=== PATIENT | female | born 1995 | race Caucasian/White ===

== ENCOUNTER → 2020-08-20 12:29 | Outpatient (CLI) | payer OTHER, SELFPAY ==
[2020-08-20 20:41] LABS: COVID19 - ORCAS (NP or Nasal) POSITIVE (Negative)
== END ==
PROVIDERS: Visit Provider Family Medicine
DX: U07.1 COVID-19 (principal)
CPT/HCPCS: U0003

== ENCOUNTER → 2023-08-10 11:07 | Outpatient (CLI) | payer OTHER, MEDICAID, SELFPAY ==
[2023-08-10 12:17] LABS: Natera Collection Specimen Collected
[2023-08-10 12:22] LABS: Add Manual Diff / Slide Review NO; Basophils Absolute Auto 0 /uL (0-100); Basophils Percent Auto 0.3 % (0-2); Eosinophils Absolute Auto 200 /uL (0-450); Eosinophils Percent Auto 2.9 % (2-4); Hematocrit 37.7 % (36-46); Hemoglobin 13.1 g/dL (12.0-16.0); Lymphocytes Absolute Auto 1900 /uL (1100-4500); Mean Corpuscular HGB Conc 34.8 % (30-36); Mean Corpuscular Hemoglobin 30.8 PG (26-34); Mean Corpuscular Volume 88.6 fL (80-100); Monocytes Absolute Auto 700 /uL (0-900); Monocytes Percent Auto 9.3 % (3-14); Neutrophils Absolute Auto 4700 /uL (1500-7000); Neutrophils Percent Auto 62.5 % (50-75); Platelet Count 299 X10^3/uL (150-400); Red Blood Cell Count 4.25 X10^6/uL (4.0-5.2); Red Cell Distribution Width 12.6 % (11.6-14.8); White Blood Cell Count 7.4 X10^3/uL (4.5-11.0)
[2023-08-10 15:02] LABS: Hepatitis B Surface Antigen NEGATIVE s/c (NEGATIVE); Rubella Antibody IgG 96.2 IU/mL (>15)
[2023-08-10 15:20] LABS: HIV 1 & 2 Ab/Ag 4th Gen Combo NEGATIVE (NEGATIVE); Hep C Virus Ab w/Reflex Quant NEGATIVE s/c (NEGATIVE)
[2023-08-11 08:09] LABS: RPR Screen Non Reactive (Non Reactive); Varicella IgG Antibody 349 index (Immune >165)
== END ==
PROVIDERS: PCP Physician Assistant; Referring Provider Student in an Organized Health Care Education/Training Program; Visit Provider Student in an Organized Health Care Education/Training Program
DX: Z34.02 Encounter for supervision of normal first pregnancy, second trimester (principal); Z3A.12 12 weeks gestation of pregnancy
CPT/HCPCS: 36415; 80055; 86787; 86803; 86850; 86900; 86901; 87086; 87389

== ENCOUNTER → 2023-09-07 11:01 | Outpatient (CLI) | payer OTHER, MEDICAID, SELFPAY ==
[2023-09-11 07:22] LABS: AFP Value 28.3 ng/mL (.); Gest Age on Col Date 16.6 weeks (.); Insulin Dep Diabetes No (.); OSBR Risk 1IN 10000 (.); Results Report (.); Test Results *Screen Negative* (.)
== END ==
LOC: LAB 11:01
PROVIDERS: PCP Physician Assistant; Referring Provider Student in an Organized Health Care Education/Training Program; Visit Provider Student in an Organized Health Care Education/Training Program
DX: Z34.00 Encounter for supervision of normal first pregnancy, unspecified trimester (principal); Z3A.16 16 weeks gestation of pregnancy
CPT/HCPCS: 36415; 82105

== ENCOUNTER → 2023-10-15 12:12 | Outpatient (CLI) | payer OTHER, MEDICAID, SELFPAY ==
--- NOTE | 2023-10-15 12:13 | DI.US.S_ITS ---
PROCEDURE: US OB >= 14 WEEKS FETUS INDICATIONS: anatomy scan OUTSIDE/PRIOR DATING DATA: Last menstrual period (LMP): 05/14/2023. LMP-based estimated date of delivery (MURALI): 02/18/2024. First dating scan (date and location): 08/10/2023. Estimated date of delivery (MURALI) from first dating scan: 02/20/2024. The calculations are made using the working MURALI of 02/18/2024. TECHNIQUE: Real-time scanning was performed of the fetus, with image documentation and biometric measurements. Endovaginal scanning: Not performed COMPARISON: None. FINDINGS: General: A single living intrauterine gestation is present. Presentation: Breech. Placenta: Placental position is anterior, without previa. Amniotic fluid index: Anterior 12.9 cm, normal range is 5-24 cm. Single deepest vertical pocket is 5.0 cm. heart rate: 133 beats per minute. Maternal cervical canal: 4.1 cm long. Normal lower limit is 2.5 cm. biometrics: Biparietal diameter: 5.4 cm, 22 weeks 3 days Head circumference: 19.2 cm, 21 weeks 3 days Abdominal circumference: 17.5 cm, 22 weeks 3 days Femur length: 3.4 cm, 20 weeks 5 days Clinically estimated gestational age: 22 weeks 0 days Composite gestational age from present scan: 21 weeks 5 days Estimated weight and percentile: 440 g, 27th percentile Anatomic survey: Neuro: Ventricles are non-dilated at less than 10 mm. Cisterna magna is normal at 3-11 mm. Cerebellum is normal in size and morphology. Nuchal skin fold: Normal at less than 6 mm between 14-21 weeks gestational age. Face: Nose and lips, facial profile are normal. Spine: No evidence for spina bifida. Heart: 4-chambered heart is present, with normal ventricular outflow tracts. Diaphragm: Diaphragm is intact. Stomach: Left-sided stomach is present. Kidneys: No hydronephrosis. Normal is less than 5 mm in 2nd trimester, less than 7 mm in 3rd trimester. Cord: 3-vessel cord has orthotopic insertion. Bladder: Normal in size. Extremities: All 4 extremities identified. IMPRESSION: 1. Living 2nd trimester intrauterine with no sonographic evidence of complications. Ultrasound age correlates with clinical age. 2. Normal 2nd trimester anatomy study. We strive to produce accurate, complete, and clear reports of imaging services. To assist us in improving patient care, this report was composed using standard report templates and voice recognition software. Therefore, it may contain abnormal punctuation, insertions and/or omissions. Occasional wrong-word or sound-alike substitutions may occur. Though we review the report and make efforts to correct it, we do recommend that the report be read carefully in proper context to recognize any text inaccuracies. Dictated by: Bakari Dunham M.D. on 10/15/2023 at 15:56 Approved by: Bakari Dunham M.D. on 10/15/2023 at 16:51
== END ==
PROVIDERS: PCP Physician Assistant; Referring Provider Student in an Organized Health Care Education/Training Program; Visit Provider Student in an Organized Health Care Education/Training Program
DX: Z34.02 Encounter for supervision of normal first pregnancy, second trimester (principal); Z3A.21 21 weeks gestation of pregnancy
CPT/HCPCS: 76811

== ENCOUNTER → 2023-11-09 09:16 | Outpatient (CLI) | payer OTHER, MEDICAID, SELFPAY ==
[2023-11-09 11:42] LABS: Hematocrit 35.3 % (36-46); Hemoglobin 12.1 g/dL (12.0-16.0)
[2023-11-09 12:27] LABS: GTT (PREG) 1 Hour PP 50gm Dose 154 mg/dL (76-139)
== END ==
PROVIDERS: PCP Physician Assistant; Referring Provider Student in an Organized Health Care Education/Training Program; Visit Provider Student in an Organized Health Care Education/Training Program
DX: Z34.82 Encounter for supervision of other normal pregnancy, second trimester (principal); Z3A.26 26 weeks gestation of pregnancy
CPT/HCPCS: 36415; 82950; 85014; 85018

== ENCOUNTER → 2023-11-16 09:29 | Outpatient (CLI) | payer OTHER, MEDICAID, SELFPAY ==
[2023-11-16 10:06] LABS: Glucose Fasting Gestational 79 mg/dL (76-95)
[2023-11-16 12:25] LABS: Glucose 1 Hour Gest 136 mg/dL (76-180)
[2023-11-16 12:34] LABS: Glucose 2 Hour Gest 157 mg/dL (76-155)
[2023-11-16 13:46] LABS: Glucose Tol Interp,Gestational INTERPRETATION
[2023-11-16 13:52] LABS: Glucose 3 Hour Gest 147 mg/dL (76-140)
== END ==
PROVIDERS: PCP Physician Assistant; Referring Provider Student in an Organized Health Care Education/Training Program; Visit Provider Student in an Organized Health Care Education/Training Program
DX: Z34.00 Encounter for supervision of normal first pregnancy, unspecified trimester (principal); R73.09 Other abnormal glucose
CPT/HCPCS: 36415; 82951; 82952

== ENCOUNTER → 2023-11-22 15:55 | Outpatient (CLI) | payer OTHER, MEDICAID, SELFPAY ==
--- NOTE | 2023-11-22 17:06 | DIAB.GDA ---
Initial Gestational Diabetes Assessment Name: Jennifer Wise Date: 11/22/23 Time: 3-355p Dx: Gestational Diabetes Provider: Alex MURALI: 02/18/24 Weeks: 27-28 Erin presents for initial visit virtually using [facility] Portal. SMBG monitor ordered. Pharmacy has not received meter yet. [place]. Today her main question is how severe is my GDM dx?. States she has a lot of anxiety about diagnosis. FH of DM: maternal, grandmother and great aunt type 2, same grandmother had GDM. Reports she was having more frequent urination and thirsty after sweets prior to diagnosis. 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 Has veggies, hummus, and fruit available at work. Diet Recall: Wake: 7a 7-730a: Bagel and cream cheese before. Now 1 ww toast and egg 1c black coffee (before sugar coffee with milk) 10a: veggie and hummus 1130a-12p: was having sandwiches with veggies and warmed deli meat and cheese with popcorn or sun chips OR salads Sn: veggies 6p: was pizza or burgers and fries. Now: rice x ?-1c, veggies, protein Sn: none now, before sweets or popcorn Water: 12oz x 8 Coffee: 1c Occasional bubbly water Craving sweets. No soda or juice. Anthropometrics: Ht: 5'10 Wt: 202# 11/09/23 at OB visit Prepregnancy wt: 165# Physical Activity: Movement with work, takes stairs intentionally at work. No other intentional activity. Self-Monitoring Blood Glucose: None yet. Waiting on meter from pharmacy. Diabetes Medications: None Pertinent Labs: Screen: 154 H; OGTT: 79, 136, 157 H, 147 H Nutrition Rx: Meal: 45-60g lunch and dinner; 30g breakfast Snack: 15-30g Nutrition Diagnosis: Altered nutrition related lab value r/t GDM dx aeb recent OGTT Nutrition and food related knowledge deficit r/t new dx GDm aeb OGTT, diet recall, and pt report Self monitoring deficit r/t does not currently have meter aeb pt report Intervention: This participant was very receptive. Provided appropriate educational handouts. Discussed the following topics: GDM pathophysiology and impact of hyperglycemia on mom and baby Risk for T2DM for mom and baby in the future Ways to reduce risk T2DM Plate Method, meal timing, carb counting, pairing macronutrients and spreading out CHO for better BG management Blood glucose goals (FBG: <95 and 1 hour <140 mg/dL or 2 hour <120 mg/dl); importance of checking 4x per day (FBG and pc) Impact of macronutrients on blood glucose Recommended servings for carbohydrates at meals and snacks Brainstormed appropriate meal plan based on her food preferences Role of physical activity and following provider guidelines for safety Reviewed her lab results in detail, discussed how this dx is manageable. Goals: Aim for nutrition rx Check BG 4x per day once meter is received Add fruit to a snack during the day Pair CHO and pro at meals and snacks Follow-up: KRYSTA CARREON follow-up in one week Julianna Su RDN, LAURI Certified Diabetes Care and Secondary School Teacher Librarian T: [phone] F: [phone] [email or web address] Thank you for this referral
== END ==
LOC: DIET 15:55
PROVIDERS: PCP Physician Assistant; Referring Provider Student in an Organized Health Care Education/Training Program
DX: O24.419 Gestational diabetes mellitus in pregnancy, unspecified control (principal); Z3A.27 27 weeks gestation of pregnancy; Z71.3 Dietary counseling and surveillance
CPT/HCPCS: 97802

== ENCOUNTER → 2023-11-30 08:09 | Outpatient (CLI) | payer OTHER, MEDICAID, SELFPAY ==
--- NOTE | 2023-11-30 08:54 | DIAB.GDFU ---
Follow-up Gestational Diabetes Assessment Name: Jennifer Wise Date: 11/30/23 Time: 805-830a Dx: Gestational Diabetes Provider: Alex MURALI: 02/18/24 Weeks: 28-29 Erin presents for follow-up visit virtually using [facility] Portal. Anxiety: feeling much better since seeing BG numbers. Was able to acquire and start BG checks this week. Added fruit to afternoon snack. Pairing carbs with protein most meals/snacks. Missing protein at afternoon snack at times. Sometimes very tired staying up after dinner to check pc reading. Can check at 1 hour and beatriz in BG log. c/o leg cramps at night. Diet recall: 7730a: Croissant sandwich; 2 ww toast and avocado 1c black coffee (half and half) 10a: veggie and hummus 1130a-12p: sandwiches with veggies, some chips Sn: half baked good OR fruit OR veggies and hummus 630p: veggies, 1/2c rice, chx artis OR burger with bun and salad Sn: none Water: 68oz Coffee: 1c Occasional bubbly water Anthropometrics: Ht: 5'10 Wt: 202# 11/09/23 at OB visit Prepregnancy wt: 165# Physical Activity: Movement with work, takes stairs intentionally at work. Has some hikes scheduled this weekend. Self-Monitoring Blood Glucose: FBG and 2 hour. All FBG this week in goal. Most pc readings in goal. One elevation from very high CHO intake. Date Pre Post Pre Post Pre Post notes 11/25 104 126 4 pc pizza and ice cream 11/26 78 101 92 82 1/2c Rice, veg, chx and artis 11/27 72 93 94 114 Burger/fries 11/28 85 83 112 88 Burger with bun and salad B: ham and namibian croissant 11/29 89 Diabetes Medications: None Pertinent Labs: Screen: 154 H; OGTT: 79, 136, 157 H, 147 H Nutrition Rx: Meal: 45-60g lunch and dinner; 30g breakfast Snack: 15-30g Nutrition Diagnosis: Altered nutrition related lab value r/t GDM dx aeb recent OGTT Nutrition and food related knowledge deficit r/t new dx GDm aeb OGTT, diet recall, and pt report- improved Self monitoring deficit r/t does not currently have meter aeb pt report - improved Inconsistent protein intake r/t needing pairing in afternoon aeb diet recall- new Intervention: This participant was very receptive. Provided appropriate educational handouts. Discussed the following topics: Balancing CHO intake for and BG management Physical activity plans Hydration during Blood glucose goals (FBG: <95 and 1 hour <140 mg/dL or 2 hour <120 mg/dl);Potential for 1 hour checks in evening if difficulty to get 2 hour. Recommended servings for carbohydrates at meals and snacks Pairing with protein and protein needs during Reviewed her lab results in detail, discussed how this dx is manageable. Goals: Aim for nutrition rx- met Check BG 4x per day once meter is received - met Add fruit to a snack during the day - met Pair CHO and pro at meals and snacks - improved Add protein to afternoon snack- new Can check 1 hour pc after dinner if tired- new Follow-up: KRYSTA CARREON follow-up in two weeks Julianna Su RDN, LAURI Certified Diabetes Care and [employer] Machine Operator T: [phone] F: [phone] [email or web address] Thank you for this referral
== END ==
PROVIDERS: PCP Physician Assistant; Referring Provider Student in an Organized Health Care Education/Training Program
DX: O24.419 Gestational diabetes mellitus in pregnancy, unspecified control (principal); Z3A.28 28 weeks gestation of pregnancy; Z71.3 Dietary counseling and surveillance
CPT/HCPCS: 97803

== ENCOUNTER → 2023-12-13 15:57 | Outpatient (CLI) | payer OTHER, MEDICAID, SELFPAY ==
--- NOTE | 2023-12-13 16:00 | DIAB.GDFU ---
Follow-up Gestational Diabetes Assessment Name: Jennifer Wise Date: 12/13/23 Time: 4-430p Dx: Gestational Diabetes Provider: Alex MURALI: 02/18/24 Weeks: 30-31 Erin presents for follow-up visit virtually using [facility] Portal. Had a half of subway sandwich, BG ok. Then had a whole one and BG and BG was 140s. c/o leg cramps at night last visit, and now has noticed low water intake increases likelihood of cramps. Super busy at work may have reduced water intake. Trying to bring large water bottle to help increase intake. sometime will catch up on all water intake at night, leading to increased urination in the night. Reports whooping cough vaccine upset GI, ie nausea, 1x emesis, some minor skin rashes for one day. Much better now. Diet recall: a: 2x pb toast and banana 1c black coffee (half and half) 10a: veggie and hummus + fruit 1130a-1p: sandwiches with veggies, some chips Sn: veggies and hummus + fruit 630p: burger with bun and half fries OR Ramen noodles, carrots, hummus OR quesadilla with carrots and hummus Sn: none Water: 32-96oz Coffee: 1c Occasional bubbly water Anthropometrics: Ht: 5'10 Wt: 206# 12/07/23 202# 11/09/23 at OB visit Prepregnancy wt: 165# Physical Activity: Trying to walk more. More hikes are scheduled. Knee pain is limiting. Self-Monitoring Blood Glucose: FBG and 2 hour. All FBG this week in goal but one elevation on 12/06. Most pc readings in goal except when very high CHO intake x2 meals this week. Date Pre Post Pre Post Pre Post notes 12/06 100 104 123 109 1 hr 12/07 80 102 98 129 1 hr 12/08 85 130 1h 106 110 12/09 91 96 111 148 12 sandwich 12/10 83 96 96 120 12/11 84 104 81 99 12/12 81 108 97 Diabetes Medications: None Pertinent Labs: Screen: 154 H; OGTT: 79, 136, 157 H, 147 H Nutrition Rx: Meal: 45-60g lunch and dinner; 30g breakfast Snack: 15-30g Nutrition Diagnosis: Altered nutrition related lab value r/t GDM dx aeb recent OGTT Inconsistent protein intake r/t needing pairing in afternoon aeb diet recall- improved/in progress Inconsistent protein intake r/t needing protein at dinner aeb diet recall- in progress Predicted inadequate fluid intake r/t busy work day aeb pt report of 32oz some day and cramps- new Intervention: This participant was very receptive. Provided appropriate educational handouts. Discussed the following topics: Protein and hydration needs and benefits with nutrition and BG management Carb portions and BG results BG trends and goals Strategies for water intake Reviewed her lab results in detail, discussed how this dx is manageable. Goals: Add protein to afternoon snack- improved Can check 1 hour pc after dinner if tired- met Try drinking more water before work to reduce catch up at night- new Add protein to ramen- new Follow-up: KRYSTA CARREON follow-up in two weeks Julianna Su RDN, LAURI Certified Diabetes Care and Open End Spinning Operator T: [phone] F: [phone] [email or web address] Thank you for this referral
== END ==
LOC: DIET 15:58
PROVIDERS: PCP Physician Assistant; Referring Provider Student in an Organized Health Care Education/Training Program
DX: O24.419 Gestational diabetes mellitus in pregnancy, unspecified control (principal); Z3A.30 30 weeks gestation of pregnancy; Z71.3 Dietary counseling and surveillance
CPT/HCPCS: 97803

== ENCOUNTER → 2023-12-27 16:06 | Outpatient (CLI) | payer OTHER, MEDICAID, SELFPAY ==
--- NOTE | 2023-12-27 16:08 | DIAB.GDFU ---
Follow-up Gestational Diabetes Assessment Name: Jennifer Wise Date: 12/27/23 Time: 4-435p Dx: Gestational Diabetes Provider: Alex MURALI: 02/18/24 Weeks: 32-33 Erin presents for follow-up visit virtually using [facility] Portal. Has had more elevations FBG and pc readings lately. States she cannot remember what she has been eating lately, but does endorse higher CHO intake when postprandial elevations occur. States she has been trying to drink more water throughout the day, as suggested last visit. After discussing the potential for insulin due to elevated FBG, she reports feeling 0/10 anxiety about the potential for insulin. Feels if this is the best treatment, she is amenable to this. Has OB visit tomorrow. Anthropometrics: Ht: 5'10 Wt: 206# 12/07/23 202# 11/09/23 at OB visit Prepregnancy wt: 165# Self-Monitoring Blood Glucose: FBG and 2 hour. FBG seem to be going up this week with 3 above goal. Also, documented three elevated pc readings. Did not check BG mid week due to baby shower and losing meter temporarily. Last night, had burger and fries and BG went up to 158mg/dl. FBG 12/14-12/19: 76, 73, 95, 92, 95, 88 Date Pre Post Pre Post Pre Post notes 12/20 77 112 1h 70 138 12/21 94 12/22 12/23 98 110 131 112 12/24 98 120 91 140 1h 12/25 93 115 1h 105 158 1h 12/26 99 95 94 Diabetes Medications: None Pertinent Labs: Screen: 154 H; OGTT: 79, 136, 157 H, 147 H Intervention: This participant was very receptive. Provided appropriate educational handouts. Discussed the following topics: Potential for insulin injection HS Action of insulin and safety during Strategy for injection, will send handout if insulin is rx'd tomorrow Overall nutrition recs and lowering CHO intake at meals Addressed any questions regarding GDM and/or insulin Goals: Try drinking more water before work to reduce catch up at night- met Add protein to ramen- d/c (cut out ramen) Try to lower CHO intake to recs at meals- new Discuss potential for insulin with OB tomorrow- new Follow-up: KRYSTA CARREON follow-up in two weeks or sooner niranjan Su RDN, [facility] Certified Diabetes Care and Pigs Feet Finisher T: [phone] F: [phone] [email or web address] Thank you for this referral
== END ==
PROVIDERS: PCP Physician Assistant; Referring Provider Student in an Organized Health Care Education/Training Program
DX: O24.419 Gestational diabetes mellitus in pregnancy, unspecified control (principal); Z3A.32 32 weeks gestation of pregnancy; Z71.3 Dietary counseling and surveillance
CPT/HCPCS: G0108

== ENCOUNTER → 2024-01-25 10:08 | Outpatient (CLI) | payer OTHER, MEDICAID, SELFPAY ==
[2024-01-26 12:37] LABS: Strep Grp B PCR NEG for Grp B Strep
== END ==
PROVIDERS: PCP Physician Assistant; Referring Provider Student in an Organized Health Care Education/Training Program; Visit Provider Student in an Organized Health Care Education/Training Program
DX: Z36.85 Encounter for antenatal screening for Streptococcus B (principal)
CPT/HCPCS: 87653

== ENCOUNTER 2024-01-25 11:26 | Outpatient (CLI) | payer OTHER, MEDICAID, SELFPAY ==
--- NOTE | 2024-01-25 12:16 | P.TNLD_ITS ---
Visit Information Visit Information Date of evaluation: 01/25/24 Primary OB Provider: Maura Johnson On-call OB Provider: Kristal Becker Reason for Evaluation: Yes non-stress test non-stress test reason: diabetes PFSH Medical History (Updated 01/25/24 @ 12:19 by Kristal Becker MD) Penicillin allergy Acne Allergies Anxiety Chronic back pain (~2015) Ankle pain (~2013) Migraine with aura (~2015) HSV (herpes simplex virus) anogenital infection (~2014) Hives Contact with and (suspected) exposure to infections with a predominantly sexual mode of transmission Bronchospasm with bronchitis, acute Surgical History (Updated 07/05/23 @ 12:13 by Monse Cedillo RN) [place] teeth extracted Family History (Updated 08/27/23 @ 19:13 by Garima Obando) Mother Fibromyalgia Thyroid disease Aunt Ovarian cancer Diabetes mellitus Grandmother Diabetes mellitus Osteoporosis Cervical cancer Grandfather Kidney failure Diabetes mellitus Heart disease Hypertension Grandmother Diabetes mellitus Heart disease Sister Hypertension Obsessive compulsive disorder Depression Social History marital status: unmarried,living together number of children: 0 household members: significant other lives independently: Yes caregiver/support person: No housing: house pets and animals: Yes (2 dogs) education level: high school 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) current occupational exposures/hazards: Yes special becca needs: No travel history: recent (domestic only) seatbelt use: always helmet use: Yes water heater temp set < 120 deg: No (will check and consider adjusting) working smoke detector in home: Yes fire extinguisher in home: Yes carbon monox detector in home: Yes firearms in home: Yes firearms unloaded and locked: Yes do you feel safe at home: Yes Smoking Status: Former smoker (quit vaping 2022, quit all nicotine early 2023) Tobacco: How many years used: 8 second hand exposure: No alcohol intake: never substance use type: marijuana during the past year weight has: other (fluxuated) well-balanced diet: daily or most days daily servings fruits/ve or more times/day caffeine: Yes (normally, but not since becoming ) Type(s) of exercise: running frequency: 3-4 times per week Evaluation Evaluation Baseline heart rate: 125 Variability: Moderate (11-25) monitor accelerations: Present Monitor Decelerations: Absent Contraction Frequency (minutes): 0 Category of Tracing: Reactive Status: Category l Diagnosis, Plan/Disposition Final Diagnosis (1) Gestational diabetes mellitus, class A2: Status: Acute (2) 36 weeks gestation of : Status: Acute Plan/Disposition Plan: Reactive nonstress test. Continue with routine OB visits. OB Disposition: home
== END 2024-01-25 12:15 | disposition home or self-care (01) ==
LOC: OB 01-28 10:34
PROVIDERS: PCP Physician Assistant; Referring Provider Student in an Organized Health Care Education/Training Program; Visit Provider Student in an Organized Health Care Education/Training Program
DX: O24.414 Gestational diabetes mellitus in pregnancy, insulin controlled (principal); Z3A.36 36 weeks gestation of pregnancy
CPT/HCPCS: 59025; 87653; G0378; G0379

== ENCOUNTER 2024-02-13 14:10 | Outpatient (CLI) | payer OTHER, MEDICAID, SELFPAY | END 2024-02-13 15:26 | disposition home or self-care (01) | LOC: LABOR 14:26 → OB 02-14 10:50 | PROVIDERS: PCP Physician Assistant; Referring Provider Student in an Organized Health Care Education/Training Program; Visit Provider Student in an Organized Health Care Education/Training Program | DX: Z03.71 Encounter for suspected problem with amniotic cavity and membrane ruled out (principal) | CPT/HCPCS: 59025; 84112; G0378; G0379 ==

== ENCOUNTER 2024-02-14 02:30 | Outpatient (CLI) | payer OTHER, MEDICAID, SELFPAY | END 2024-02-14 03:43 | disposition home or self-care (01) | LOC: OB 02-18 08:09 | PROVIDERS: PCP Physician Assistant; Referring Provider Obstetrics & Gynecology; Visit Provider Obstetrics & Gynecology | DX: O47.1 False labor at or after 37 completed weeks of gestation (principal); O24.419 Gestational diabetes mellitus in pregnancy, unspecified control; Z3A.39 39 weeks gestation of pregnancy | CPT/HCPCS: 59025; G0378; G0379 ==

== ENCOUNTER 2024-02-14 07:03 | Outpatient (CLI) | payer OTHER, MEDICAID, SELFPAY | END 2024-02-14 09:00 | disposition home or self-care (01) | LOC: OB 02-18 06:11 | PROVIDERS: PCP Physician Assistant; Referring Provider Obstetrics & Gynecology; Visit Provider Obstetrics & Gynecology | DX: O24.419 Gestational diabetes mellitus in pregnancy, unspecified control (principal); Z3A.39 39 weeks gestation of pregnancy | CPT/HCPCS: 59025; G0378; G0379 ==

== ENCOUNTER 2024-02-15 23:58 | Inpatient (IN) | payer OTHER, MEDICAID, SELFPAY ==
[2024-02-16 01:11] LABS: Add Manual Diff / Slide Review NO; Basophils Absolute Auto 0 /uL (0-100); Basophils Percent Auto 0.2 % (0-2); Eosinophils Absolute Auto 200 /uL (0-450); Eosinophils Percent Auto 1.6 % (2-4); Hematocrit 38.9 % (36-46); Hemoglobin 13.2 g/dL (12.0-16.0); Lymphocytes Absolute Auto 2400 /uL (1100-4500); Lymphocytes Percent Auto 21.7 % (25-40); Mean Corpuscular Volume 91.1 fL (80-100); Monocytes Absolute Auto 1200 /uL (0-900); Monocytes Percent Auto 10.4 % (3-14); Neutrophils Absolute Auto 7300 /uL (1500-7000); Neutrophils Percent Auto 66.1 % (50-75); Platelet Count 263 X10^3/uL (150-400); Red Blood Cell Count 4.27 X10^6/uL (4.0-5.2); Red Cell Distribution Width 13.6 % (11.6-14.8); White Blood Cell Count 11.1 X10^3/uL (4.5-11.0)
[2024-02-16 01:13] VITALS: BP 137/92
[2024-02-16 01:27] LABS: Alanine Aminotransferase 21 IU/L (<35); Albumin 3.7 g/dL (3.5-5.0); Albumin Globulin Ratio 1.1 (1.0-2.8); Alkaline Phosphatase 118 U/L (38-126); Aspartate Aminotransferase 41 IU/L (14-36); Bilirubin Total 0.7 mg/dL (0.2-1.3); Blood Urea Nitrogen 12 mg/dL (7-17); Calcium 9.4 mg/dL (8.4-10.2); Carbon Dioxide 20 mmol/L (22-32); Chloride 107 mmol/L (98-107); Estimated Glomerular Filt Rate > 60 mL/min (>60); Globulin 3.3 g/dL (1.7-4.1); Glucose 98 mg/dL (70-100); Potassium 4.6 mmol/L (3.4-5.1); Sodium 133 mmol/L (137-145)
[2024-02-16 01:28] LABS: Creatinine Urine Random 43.81 mg/dL; Protein (Total) Urine Random 23 mg/dL (0-12); Protein Creatinine Ratio Urine 0.52 GRAM/24H
[2024-02-16 01:33] LABS: HEMOLYSIS 110 (0-50)
--- NOTE | 2024-02-16 10:35 | P.HP_ITS ---
History of Present Illness History of Present Illness Date Patient Seen: 02/16/24 Time Patient Seen: 08:45 Chief complaint: labor Narrative: 28 yo G1 presenting at [facility] Medical History (Updated 02/08/24 @ 11:28 by Maura Johnson DO) Penicillin allergy Acne Allergies Anxiety Chronic back pain (~2015) Ankle pain (~2013) Migraine with aura (~2015) HSV (herpes simplex virus) anogenital infection (~2014) Hives Contact with and (suspected) exposure to infections with a predominantly sexual mode of transmission Bronchospasm with bronchitis, acute Surgical History (Updated 07/05/23 @ 12:13 by Monse Cedillo, BART) [place] teeth extracted Family History (Updated 08/27/23 @ 19:13 by Garima Obando) Mother Fibromyalgia Thyroid disease Aunt Ovarian cancer Diabetes mellitus Grandmother Diabetes mellitus Osteoporosis Cervical cancer Grandfather Kidney failure Diabetes mellitus Heart disease Hypertension Grandmother Diabetes mellitus Heart disease Sister Hypertension Obsessive compulsive disorder Depression Social History marital status: unmarried,living together number of children: 0 household members: significant other lives independently: Yes caregiver/support person: No housing: house pets and animals: Yes (2 dogs) education level: high school 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) current occupational exposures/hazards: Yes special becca needs: No travel history: recent (domestic only) seatbelt use: always helmet use: Yes water heater temp set < 120 deg: No (will check and consider adjusting) working smoke detector in home: Yes fire extinguisher in home: Yes carbon monox detector in home: Yes firearms in home: Yes firearms unloaded and locked: Yes do you feel safe at home: Yes Smoking Status: Former smoker Tobacco: How many years used: 8 second hand exposure: No alcohol intake: never substance use type: marijuana during the past year weight has: other (fluxuated) well-balanced diet: daily or most days daily servings fruits/ve or more times/day caffeine: Yes (normally, but not since becoming ) Type(s) of exercise: running frequency: 3-4 times per week Meds Home Medications and Allergies Home Medications Medication Instructions Recorded Confirmed Type magnesium oxide 400 mg (241.3 mg 400 mg PO DAILY 07/05/23 02/01/24 History magnesium) tablet vitamin-ferrous sulfate tab PO 07/05/23 02/01/24 History 27 mg iron-folic acid 0.8 mg tablet blood sugar diagnostic (Blood #120 ea 11/19/23 02/01/24 Rx Glucose Test strips) blood-glucose meter (Blood Glucose #1 ea 11/19/23 02/01/24 Rx Monitoring kit) lancets #120 ea 11/19/23 02/01/24 Rx Double Electric Breast Pump #1 ea 11/26/23 02/01/24 Rx breast pump #1 ea 12/07/23 02/01/24 Rx RSVPreF3 antigen-AS01E 0.5 ml IM ONCE #1 ea 12/28/23 02/01/24 Rx adjuvant(PF) 120 mcg/0.5 mL IM suspension, kit insulin NPH isoph U-100 human 100 20 unit (0.2 mL) SUBCUT .qhs #15 mL 12/28/23 02/01/24 Rx unit/mL (3 mL) subcutaneous pen (Humulin N NPH U-100 Insulin KwikPen) valacyclovir 500 mg tablet 500 mg PO BID #60 tabs 01/25/24 02/01/24 Rx (Valtrex) Allergies Allergy/AdvReac Type Severity Reaction Status Date / Time amoxicillin Allergy Severe Swelling Verified 02/15/24 14:17 of Lip/Tongue/Throat Penicillins Allergy Severe Anaphylaxis Verified 02/15/24 14:17 shellfish derived Allergy Intermediate Hives Verified 02/15/24 14:17 adhesive tape Allergy Mild irritation Verified 02/15/24 14:17 Egg Derived AdvReac Mild Abdominal Verified 02/15/24 14:17 Pain Objective Labs 02/16/24 00:55 02/16/24 00:55 Labs: Laboratory Results - last 24 hr 02/16/24 00:55 WBC 11.1 H RBC 4.27 Hgb 13.2 Hct 38.9 MCV 91.1 MCH 31.0 MCHC 34.0 RDW 13.6 Plt Count 263 Neut % (Auto) 66.1 Lymph % (Auto) 21.7 L [place] % (Auto) 10.4 Eos % (Auto) 1.6 L Baso % (Auto) 0.2 Neut # (Auto) 7300 H Lymph # (Auto) 2400 [place] # (Auto) 1200 H Eos # (Auto) 200 Baso # (Auto) 0 Sodium 133 L Potassium 4.6 Chloride 107 Carbon Dioxide 20 L BUN 12 Creatinine 0.48 L Estimated GFR > 60 BUN/Creatinine Ratio 25.0 H Glucose 98 Calcium 9.4 Total Bilirubin 0.7 AST 41 H ALT 21 Alkaline Phosphatase 118 Total Protein 7.0 Albumin 3.7 Globulin 3.3 Albumin/Globulin Ratio 1.1 U Random Total Protein 23 H Urine Creatinine 43.81 Protein/Creatinin Ratio 0.52 Blood Type AB Positive Antibody Screen Negative Assessment & Plan Time-Based Coding :: [TOTAL MINUTES] spent with patient and on the chart (including review of chart, obtaining history, exam, reviewing outside data, placing orders, documenting exam and treatment plan, and counseling patient) on [DATE].
--- NOTE | 2024-02-16 10:36 | P.PCNOB_ITS ---
Events: Gestational Diabetes (GDMA1) Labor & Delivery Delivery date: 02/16/24 Cervical ripening method: none Induction method: none Route of delivery: L&D Laceration Description: Vaginal - 1st Degree (right labial) Delivery repair: vicryl Estimated blood loss (mL): 200 Anesthesia Type: Spinal and Epidural Narrative: PROCEDURE: 28 yo G1 presenting at 39w5d presentign with spontaneous onset of labor. She was admitted to Labor and Delivery. The patient progressed through t he 1st stage. SROM occured at 04:50 with clear fluid. Epidural was placed but did not improve pain. SPinal was attempted but was unsuccessful as well. The patient progressed through the 2nd stage and delivered a viable infant with APGARs 9/9 at 09:58 via out of [place]. Terminal mec was present. The cord was cut and clamped after it stopped pulsating, just over 3min. The placenta delivered with gentle cord traction, and appeared complete. The perineum and vagina were inspected with one shallow right labial laceration which was repaired in the usual fashion. Needle and sponge counts were correct.? The vagina was inspected and no items were left in situ. Jennifer was doing well with her at bedside. PREPROCEDURE DIAGNOSIS: Intrauterine at 39w5d GDMA1 GBS neg RH positive POSTPROCEDURE DIAGNOSIS: Intrauterine at 39w5d, delivered Same as preprocedure Plan for aftercare: Routine care
[2024-02-16] MEDS: IBUPROFEN 600 MG TABLET PO ×2 (11:55→17:26)
[2024-02-16] MEDS: ACETAMINOPHEN 325 MG TABLET 650 MG PO ×2 (11:56→17:27)
--- NOTE | 2024-02-16 13:05 | PM.AN.REGBLK ---
[facility] Pre-procedure PMH/ROS narrative: 28yr old requesting YAHAIRA for labor. GDM with controlled by diet. Showing signs of early pre-E Exam narrative: Negative ASA Class: II Labs: Hct 38.9 % (36-46) 02/16/24 00:55 Plt Count 263 X10^3/uL (150-400) 02/16/24 00:55 Medications: Current Medications Generic Name Dose Route Start Last Admin Trade Name Freq PRN Reason Stop Dose Admin Acetaminophen 650 mg 02/16/24 10:41 02/16/24 11:56 Acetaminophen 325 Mg Tablet PO 650 mg Q6HR PRN Administration Pain, Mild (1-3) Benzocaine 1 spray 02/16/24 10:41 Dermoplast [place] 20% 60 Ml TOP Q1HR PRN perineal pain Calcium Carbonate 1,000 mg 02/16/24 00:40 Calcium Carbonate 500 Mg Tab PO Q2HR PRN Dyspepsia Carboprost Tromethamine 250 mcg 02/16/24 00:40 Carboprost 250 Mcg/Ml Ampul IM Q90M PRN Bleeding Carboprost Tromethamine 250 mcg 02/16/24 10:41 Carboprost 250 Mcg/Ml Ampul IM Q90MIN PRN Bleeding Emollient Ointment 1 applic 02/16/24 10:41 Lanolin Oint 7 Gm TOP PRN PRN Tenderness Fentanyl 100 mcg 02/16/24 00:40 Fentanyl 100 Mcg/2 Ml Inj IV Q1H PRN Pain, Severe (7-10) Oxytocin/Lactated Ringer's 30 unit in 500 mls @ 200 mls/hr 02/16/24 00:40 Oxytocin Premix IV CONT PRN Bleeding Protocol Tranexamic Acid 1,000 mg/ 100 mls @ 600 mls/hr 02/16/24 00:40 Sodium Chloride IV NOW PRN Bleeding Oxytocin/Lactated Ringer's 30 unit in 500 mls @ 200 mls/hr 02/16/24 10:41 Oxytocin Premix IV CONT PRN Bleeding Protocol Tranexamic Acid 1,000 mg/ 100 mls @ 200 mls/hr 02/16/24 10:41 Sodium Chloride IV NOW PRN Bleeding Ibuprofen 600 mg 02/16/24 10:41 02/16/24 11:55 Ibuprofen 600 Mg Tablet PO 600 mg Q6HR PRN Administration Pain, Mild (1-3) Lidocaine HCl 20 ml 02/16/24 00:40 Lidocaine 1% 20 Ml INJ INTRA-OP PRN Post Delivery Methylergonovine Maleate 0.2 mg 02/16/24 00:40 Methylergonovine 0.2 Mg Tablet PO Q6HR PRN Heavy Bleeding Methylergonovine Maleate 0.2 mg 02/16/24 00:40 Methylergonovine 0.2 Mg/Ml Vial IM NOW PRN Bleeding Methylergonovine Maleate 0.2 mg 02/16/24 10:41 Methylergonovine 0.2 Mg Tablet PO Q6HR PRN Heavy bleeding Methylergonovine Maleate 0.2 mg 02/16/24 10:41 Methylergonovine 0.2 Mg/Ml Vial IM NOW PRN Bleeding Mineral Oil 30 ml 02/16/24 00:40 Mineral Oil 30 Ml Udc TOP PRN PRN Version Misoprostol 800 mcg 02/16/24 00:40 Misoprostol 200 Mcg Tablet TX NOW PRN Bleeding Misoprostol 400 mcg 02/16/24 00:40 Misoprostol 200 Mcg Tablet SL NOW PRN Bleeding Misoprostol 800 mcg 02/16/24 10:41 Misoprostol 200 Mcg Tablet TX NOW PRN Bleeding Misoprostol 1,000 mcg 02/16/24 10:41 Misoprostol 200 Mcg Tablet TX NOW PRN Bleeding Misoprostol 400 mcg 02/16/24 10:41 Misoprostol 200 Mcg Tablet SL NOW PRN Bleeding Naloxone HCl 0.2 mg 02/16/24 00:40 Naloxone 0.4 Mg/Ml Vial IV Q2MIN PRN Opiate Reversal Naloxone HCl 0.2 mg 02/16/24 10:41 Naloxone 0.4 Mg/Ml Vial IV Q2MIN PRN Opiate Reversal Ondansetron HCl 4 mg 02/16/24 00:40 Ondansetron 4 Mg/2 Ml Inj IV Q4HR PRN Nausea And Vomiting Oxytocin 10 unit 02/16/24 00:40 Oxytocin 10 Unit/Ml Vial IM NOW PRN Bleeding Oxytocin 10 unit 02/16/24 10:41 Oxytocin 10 Unit/Ml Vial IM NOW PRN Bleeding Rho Immune Globulin 1,500 unit 02/16/24 10:41 Rho(D) Immune Globulin 1,500 Unit Syringe IM NOW PRN Mom Rh neg, Rh pos Witch Elzbieta/Glycerin 1 each 02/16/24 10:41 Witch Elzbieta/Glycerin Pads TOP Q30M PRN Itching Allergies: Allergies Allergy/AdvReac Type Severity Reaction Status Date / Time amoxicillin Allergy Severe Swelling Verified 02/15/24 14:17 of Lip/Tongue/Throat Penicillins Allergy Severe Anaphylaxis Verified 02/15/24 14:17 shellfish derived Allergy Intermediate Hives Verified 02/15/24 14:17 adhesive tape Allergy Mild irritation Verified 02/15/24 14:17 Egg Derived AdvReac Mild Abdominal Verified 02/15/24 14:17 Pain --: Pt complained of electric shock sensation with [place] on left side. Moved to right felt to be off midline but continued as patient stated electric shock sensation dissipated with change to right with needle.Unable to access SERGEY. Moved down within space and same complaint of electric shock sensation-again moved needle right as she complained of the feeling on the left. SERGEY at 9cm. Unable to access CSF with 27g pencan. Placed catheter without paresthesia due to patients impending delivery. 0810 Dissuced SAB with patient. Patient agreeable to proceed side-lying. Did not feel she could sit. Sterile prep-chloroprep, 1% lido L4-5 19g introducer 27g W Unable to access CSF with 2 needle redirects and second attempt within space. Again 2 needle redirects and unable to obtain CSF. Apologized to patient and tried calling in back up for assistance, other providers unavailable. Procedure Insertion date: 02/16/24 Insertion time: 07:02 Prep/Local: 1% lidocaine (Chloroprep) Interspace: L4-5 Patient position: sitting Needle: 18 gauge Evelinatead Loss of resistance with: saline SERGEY at (cm): 9 Catheter placed at SKIN (cm): 15 Catheter in SPACE (cm): 6 Insertion: Yes Paresthesia with insertion Initial Medications TEST DOSE time: 07:09 BOLUS DOSE time: 07:30 BOLUS DOSE (mL): 7 BOLUS DOSE med: 0.25% bupivacaine Infusion Subsequent interventions: 0745 2% Lido 7cc pain improved but not yet expected pain relief 0755 Attempted to pull catheter back a few cm and upon exposure of back catheter had migrated to 10cm. Explained to patient that subsequent bolus unlikely to work. Discussed replacing epiurdal patient did not want to sit for placement again. 0800 5cc 2% Lido - discussing SAB with patient [address] Robertson. She suggested SAB. See above note for SAB attempt. Post-procedure Anesthesia date START: 02/16/24 Anesthesia time START: 06:48 Anesthesia date END: 02/16/24 Anesthesia time END: 09:58 Post-procedure Anesthesia Assessment: Yes CV function: HR/BP stable, Yes Resp function: RR/sat/airway adequate, Yes Post-op hydration adequate, Yes Pain control adequate, Yes Nausea & vomiting absent, Yes Temperature > 36 C and Yes Mental status appropriate
--- NOTE | 2024-02-16 13:11 | P.HPOB_ITS ---
OB HPI Date/Time Date of admission: 02/16/24 Date Patient Seen: 02/16/24 Time Patient Seen: 08:45 History of Present Condition Chief complaint: labor : 1 Estimated Gestational Age (weeks): 39w5d Narrative: H&P written retrospectively after delivery. Jennifer Wise is a 28 yo G1 presenting at 39w5d with spontaneous onset of labor. In clinic yesterday she was 3/50/-3 and had membranes swept. She has been jj since then. They are not occuring every 2-3 minutes and are painful. NO LOF, or vaignal bleeding, is moving. has been complicated by GDMA1 (GTT abnormal, 3hr elevated NPH then wtih sugars in normal range, stopped and remained untreated with glucoses in goal). also complicated by HSV on suppression since 36 weeks and excessive weight gain in (54 lbs). She has a history of chronic migraines managed with MagOx during . History of Present care: good care Dating criteria: LMP confirmed by 2nd trimester US Abnormal ultrasound findings: Ultrasound Details:: Dating US 08/10/23: Franco IUP with CRL 5.73 cm (12+2wks), +FHR 139, normal appearing uterus, cervix, bilateral ovaries Anatomy US 10/15/23: normal anatomy, anterior placenta, EFW 27%ile Obstetrical complications: gestational diabetes (GDMA1) Medical complications: none Preadmission Labs Blood type: AB (+) positive -: Antibody screen: negative, GBS status: negative, HBsAG: negative, HIV: negative and RPR/VDLR: negative -: Rubella: immune and Varicella: immune HCT: 13.1 HCAB: negative PAP: Normal (08/10/23) Cell-free DNA: low risk XX 1 hr GTT: 154 3 hr GTT: 1 hr (79), 2 hr (136) and 3 hr (157) Evaluation Evaluation Baseline heart rate: 130 Variability: Moderate (11-25) monitor accelerations: Present Monitor Decelerations: Absent Contraction Frequency (minutes): 1 Category of Tracing: Reactive Status: Category l Dilation (cm): 5 PFSH Medical History (Updated 02/08/24 @ 11:28 by Maura Johnson DO) Penicillin allergy Acne Allergies Anxiety Chronic back pain (~2015) Ankle pain (~2013) Migraine with aura (~2015) HSV (herpes simplex virus) anogenital infection (~2014) Hives Contact with and (suspected) exposure to infections with a predominantly sexual mode of transmission Bronchospasm with bronchitis, acute Surgical History (Updated 07/05/23 @ 12:13 by Monse Cedillo RN) [place] teeth extracted Family History (Updated 08/27/23 @ 19:13 by Garima Obando) Mother Fibromyalgia Thyroid disease Aunt Ovarian cancer Diabetes mellitus Grandmother Diabetes mellitus Osteoporosis Cervical cancer Grandfather Kidney failure Diabetes mellitus Heart disease Hypertension Grandmother Diabetes mellitus Heart disease Sister Hypertension Obsessive compulsive disorder Depression Social History marital status: unmarried,living together number of children: 0 household members: significant other lives independently: Yes caregiver/support person: No housing: house pets and animals: Yes (2 dogs) education level: high school 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) current occupational exposures/hazards: Yes special becca needs: No travel history: recent (domestic only) seatbelt use: always helmet use: Yes water heater temp set < 120 deg: No (will check and consider adjusting) working smoke detector in home: Yes fire extinguisher in home: Yes carbon monox detector in home: Yes firearms in home: Yes firearms unloaded and locked: Yes do you feel safe at home: Yes Smoking Status: Former smoker Tobacco: How many years used: 8 second hand exposure: No alcohol intake: never substance use type: marijuana during the past year weight has: other (fluxuated) well-balanced diet: daily or most days daily servings fruits/ve or more times/day caffeine: Yes (normally, but not since becoming ) Type(s) of exercise: running frequency: 3-4 times per week Meds Home Medications and Allergies Home Medications Medication Instructions Recorded Confirmed Type magnesium oxide 400 mg (241.3 mg 400 mg PO DAILY 07/05/23 02/01/24 History magnesium) tablet vitamin-ferrous sulfate tab PO 07/05/23 02/01/24 History 27 mg iron-folic acid 0.8 mg tablet blood sugar diagnostic (Blood #120 ea 11/19/23 02/01/24 Rx Glucose Test strips) blood-glucose meter (Blood Glucose #1 ea 11/19/23 02/01/24 Rx Monitoring kit) lancets #120 ea 11/19/23 02/01/24 Rx Double Electric Breast Pump #1 ea 11/26/23 02/01/24 Rx breast pump #1 ea 12/07/23 02/01/24 Rx RSVPreF3 antigen-AS01E 0.5 ml IM ONCE #1 ea 12/28/23 02/01/24 Rx adjuvant(PF) 120 mcg/0.5 mL IM suspension, kit insulin NPH isoph U-100 human 100 20 unit (0.2 mL) SUBCUT .qhs #15 mL 12/28/23 02/01/24 Rx unit/mL (3 mL) subcutaneous pen (Humulin N NPH U-100 Insulin KwikPen) valacyclovir 500 mg tablet 500 mg PO BID #60 tabs 01/25/24 02/01/24 Rx (Valtrex) Allergies Allergy/AdvReac Type Severity Reaction Status Date / Time amoxicillin Allergy Severe Swelling Verified 02/15/24 14:17 of Lip/Tongue/Throat Penicillins Allergy Severe Anaphylaxis Verified 02/15/24 14:17 shellfish derived Allergy Intermediate Hives Verified 02/15/24 14:17 adhesive tape Allergy Mild irritation Verified 02/15/24 14:17 Egg Derived AdvReac Mild Abdominal Verified 02/15/24 14:17 Pain Review of Systems Review of Systems Narrative: + contractions - LOF - vaginal bleeding + movement OB Exam Narrative Exam Narrative: GEN: breathign through contractions CV: warm and well perfused Pulm: breathing comfortably between contractions ABD: gravid Objective Labs 02/16/24 00:55 02/16/24 00:55 Labs: Laboratory Results - last 24 hr 02/16/24 00:55 WBC 11.1 H RBC 4.27 Hgb 13.2 Hct 38.9 MCV 91.1 MCH 31.0 MCHC 34.0 RDW 13.6 Plt Count 263 Neut % (Auto) 66.1 Lymph % (Auto) 21.7 L [place] % (Auto) 10.4 Eos % (Auto) 1.6 L Baso % (Auto) 0.2 Neut # (Auto) 7300 H Lymph # (Auto) 2400 [place] # (Auto) 1200 H Eos # (Auto) 200 Baso # (Auto) 0 Sodium 133 L Potassium 4.6 Chloride 107 Carbon Dioxide 20 L BUN 12 Creatinine 0.48 L Estimated GFR > 60 BUN/Creatinine Ratio 25.0 H Glucose 98 Calcium 9.4 Total Bilirubin 0.7 AST 41 H ALT 21 Alkaline Phosphatase 118 Total Protein 7.0 Albumin 3.7 Globulin 3.3 Albumin/Globulin Ratio 1.1 U Random Total Protein 23 H Urine Creatinine 43.81 Protein/Creatinin Ratio 0.52 Blood Type AB Positive Antibody Screen Negative Assessment and Plan Assessment and Plan Assessment and Plan narrative: 28 yo G1 presenting at 39w5d with spontaneous onset of labor. # MILA - admit to LD - TS, CBC - continuous monitoring - GBS negative - stools at bedside for delivery due to shoulder dystocia risk/GDMA1 Time-Based Coding :: [TOTAL MINUTES] spent with patient and on the chart (including review of chart, obtaining history, exam, reviewing outside data, placing orders, documenting exam and treatment plan, and counseling patient) on [DATE].
[2024-02-17] MEDS: ACETAMINOPHEN 325 MG TABLET 650 MG PO (04:36)
[2024-02-17] MEDS: IBUPROFEN 600 MG TABLET PO (04:37)
[2024-02-17] MEDS: polyethylene glycoL 3350 17 GM POWD.PACK PO (09:00)
--- NOTE | 2024-02-17 09:00 | P.DS_ITS ---
Discharge Providers Provider Date of admission: 02/15/24 23:58 Discharge Date: 02/17/24 Primary care physician: Aracely Hays PA-C Consults: 02/16/24 00:40 Consult to Anesthesiology Urgent Comment: Consulting Provider: Anesthesiologist Reason for consultation: Epidural 02/17/24 10:41 Consult to Production Planner Scheduler Routine Comment: Discharge provider: Annia Yoder MD Summary Hospital Course Date Patient Seen: 02/17/24 Time Patient Seen: 09:01 Hospital Course: 28 yo G1 presenting at 39w5d who presented with spontaneous onset of labor. She was admitted to Labor and Delivery and managed expectantly. The patient progressed through the 1st stage. SROM occured at 04:50 with clear fluid. Epidural was placed but did not improve pain. Spinal was attempted but was unsuccessful as well. The patient progressed through the 2nd stage and delivered a viable infant with APGARs 9/9 at 09:58 via out of [place]. Terminal mec was present. The cord was cut and clamped after it stopped pulsating, just over 3min. The placenta delivered with gentle cord traction, and appeared complete. The perineum and vagina were inspected with one shallow right labial laceration which was repaired in the usual fashion. , pain was controlled with oral medications. Bleeding was appropriate. control options were discussed, pt is still undecided but is considering a lower dose progesterone IUD such as Melanie or Kyleena and will send a msg to primary Ob if she decides that she wants to have this placed at 6wk PP visit. She is breast feeding well but would like to see for assistance. Msg was sent to solar sales specialist to call for an appointment on the upcoming weekday. Blood pressures have been well controlled in 110s/70s through the course. 6 week PP visit is scheduled with primary OB Dr. Johnson Peripartum Data Delivery Method: Natural Vaginal Laceration Description: Vaginal - 1st Degree (right labial laceration ) complications: none Status at Discharge Cognitive/behavioral status at discharge: oriented Functional status at discharge: independent ambulation Time Spent with Patient Time attestation: Total time spent providing and/or coordinating discharge services: Time spent: Less than 30 minutes Objective Labs 02/16/24 00:55 02/16/24 00:55 Exam Narrative Exam Narrative: GEN: ambulating without difficulty, well appearing, NAD CV: warm and well perfused Pulm: breathing comfortably on RA ABd: non-tender, fundus firm Discharge Plan Discharge Plan Patient Disposition: Home Discharge orders & Medications Prescriptions: New cholecalciferol (vitamin D3) 10 mcg/mL (400 unit/mL) drops 10 mcg PO DAILY Qty: 50 0RF polyethylene glycol 3350 [Miralax] 17 gram/dose powder 17 g PO DAILY Qty: 119 0RF Continued vit-ferrous sulfat-FA 27 mg iron- 0.8 mg tablet PO magnesium oxide 400 mg (241.3 mg magnesium) tablet 400 mg PO DAILY valacyclovir [Valtrex] 500 mg tablet 500 mg PO BID Qty: 60 0RF RSVPreF3 antigen-AS01E (PF) 120 mcg/0.5 mL suspension for reconstitution 0.5 ml IM ONCE Qty: 1 0RF Discontinued (DME) Blood Glucose Test Strip See Rx Instructions .ROUTE .MEDSUPPLY Qty: 120 3RF Rx Instructions: Testing blood sugar 4x daily Humulin N NPH Insulin KwikPen 100 unit/mL (3 mL) insulin pen 20 unit SUBCUT .qhs Qty: 15 2RF Rx Instructions: administer prior to bed every night No Action (DME) lancets Misc See Rx Instructions .ROUTE .MEDSUPPLY Qty: 120 3RF Rx Instructions: Testing blood sugar 4x daily Fasting and 2 hours after each meal (DME) blood-glucose meter [Blood Glucose Monitoring] Kit See Rx Instructions .ROUTE .MEDSUPPLY Qty: 1 0RF Rx Instructions: Testing blood surgar 4x daily Fasting and 2 hours after each meal (DME) Double Electric Breast Pump See Rx Instructions .ROUTE .MEDSUPPLY Qty: 1 0RF Rx Instructions: Pump and supplies (DME) breast pump Device See Rx Instructions .ROUTE .MEDSUPPLY Qty: 1 0RF Rx Instructions: double electric Follow up/Referrals: Aracely Hays PA-C [Primary Care Provider] - Maura Johnson DO [Physician] - 6 Weeks (Please call the office on Sunday, to schedule a [address] Johnson. Please tell the surgical scheduler that you delivered over the weekend. ) Visit Report/Discharge Packet Stand Alone Forms: Discharge: Care, Patient Portal/API, Stroke Signs & Symptoms Discharge Data Primary Care Provider: Aracely Hays Attending Provider: Maura Johnson Admit Date/Time: 02/15/24 23:58
== END 2024-02-17 10:55 | disposition home or self-care (01) | DRG 560 ==
PROVIDERS: Obstetrics & Gynecology; Admitting Provider Student in an Organized Health Care Education/Training Program; PCP Physician Assistant; Referring Provider Student in an Organized Health Care Education/Training Program; Visit Provider Student in an Organized Health Care Education/Training Program
DX: O24.424 Gestational diabetes mellitus in childbirth, insulin controlled (principal); O98.52 Other viral diseases complicating childbirth; B00.9 Herpesviral infection, unspecified; Z3A.39 39 weeks gestation of pregnancy; Z37.0 Single live birth; O70.0 First degree perineal laceration during delivery
CPT/HCPCS: 36415; 59050; 80053; 82570; 84156; 85025; 86850; 86900; 86901; G0378; G0379; J3010

== ENCOUNTER → 2024-04-14 08:58 | Outpatient (CLI) | payer OTHER, SELFPAY ==
[2024-04-14 09:59] LABS: Hemoglobin A1C% w Est Avg Glu 5.2 % (4.0-6.0)
[2024-04-14 10:09] LABS: Glucose Fasting 89 mg/dL (70-100)
[2024-04-14 11:40] LABS: Glucose 1 Hour 170 mg/dL (70-170)
[2024-04-14 12:47] LABS: Glucose Tol Interpretation INTERPRETATION
[2024-04-14 12:52] LABS: Glucose 2 Hour 89 mg/dL (70-140)
== END ==
PROVIDERS: PCP Physician Assistant; Referring Provider Student in an Organized Health Care Education/Training Program; Visit Provider Student in an Organized Health Care Education/Training Program
DX: Z86.32 Personal history of gestational diabetes (principal)
CPT/HCPCS: 36415; 82951; 82952; 83036